=== PATIENT | female | born 1960 | race Caucasian/White ===

== ENCOUNTER 2017-07-26 01:37 | Emergency (ER) | payer OTHER ==
[~2017-07-26] VITALS: Ht 180.3 cm; Wt 109.5 kg
--- NOTE | 2017-07-26 01:53 | ED.REPORT ---
HPI-General Illness Date of Service Jul 26, 2017 ED Provider: Dr. Richards Pt is a 56 y/o female w/ a hx of esophageal food impaction presenting to the ED c/o esophageal food impaction onset today. The patient was eating some dry almond chicken breast at 16:00 today and a piece became stuck in her esophagus. She is now unable to swallow her saliva. Pt denies SOB. This has happened multiple times previously. Nursing Notes Stated Complaint: FOREIGN BODY IN THROAT Chief Complaint: General Complaint Nursing Notes Reviewed: Yes Allergies: Coded Allergies: quetiapine (Verified Allergy, Unknown, 07/26/17) Uncoded Allergies: AVACADO (Allergy, Unknown, 07/26/17) General Time Seen by MD: 01:53 Chief Complaint Other (esophageal food impaction) Hx Obtained From: Patient Arrived By: Walk-in Sudden in Onset?: Yes Onset Occurred: 9 - 12 hours ago Symptom Duration: Waxes and wanes Severity: Current: No pain currently Severity: Maximum: No pain Similar Sx Previous: Yes Past Medical History Past Medical History Esophageal food impaction - multiple times Past Surgical History Sex change operation Smoking History Never Smoker Social History Alcohol Use: "Social" Ambulatory Status Independent Review of Systems Full Review of Systems Respiratory: Denies: Shortness of breath GI: Reports: Dysphagia Complete sys rev & neg: except as marked. Physical Exam Vital Signs Vital Signs Date Time Temp Pulse Resp B/P Pulse Ox O2 Delivery O2 Flow Rate FiO2 07/26/17 01:54 36 73 12 130/77 97 Room Air Initial VS: Reviewed, Vital signs normal Head / Eyes: Atraumatic, Normocephalic Neck: Supple, Full range of motion Respiratory: Breath sounds normal, Clear to auscultation, No respiratory distress Cardiovascular: Regular rate & rhythm, Heart sounds normal, Intact distal pulses Extremities: Vascular intact, Neuro intact, No swelling Skin: Warm, Dry, No cyanosis Neurologic: Alert, Oriented, Nonfocal Psychiatric: Mood/affect normal, Behavior normal, Normal thought content General/Constitutional: Awake, Alert, Cooperative, Not toxic appearing Distress / Hydration: Positive: Distress mild (resolved after spontaneous passage of chicken) ENT: Atraumatic, Airway patent, Mucous membranes moist Interpretation & Diagnostics Lab Results Interpretation Result Diagram: 07/26/17 0210 07/26/17 0210 Test 07/26/17 02:10 White Blood Count 9.0th/mm3 (3.8-10.1) Red Blood Count 4.45mil/mm3 (3.90-5.20) Hemoglobin 13.8g/dL (12.0-15.6) Hematocrit 41.7% (35.0-46.0) Mean Corpuscular Volume 93.7fL (81-100) Mean Corpuscular Hemoglobin 31.0pg (27.0-35.0) Mean Corpuscular Hemoglobin Concent 33.1% (32.0-37.0) Red Cell Distribution Width 13.4% (12.3-15.4) Platelet Count 253bil/L (150-400) Neutrophils (%) (Auto) 63.2% (40-74) Lymphocytes (%) (Auto) 20.8% (14-46) Monocytes (%) (Auto) 9.5% (4-12) Eosinophils (%) (Auto) 5.3% (0-5) Basophils (%) (Auto) 0.6% (0-3) Prothrombin Time 9.7sec (8.1-12.5) Prothromb Time International Ratio 0.91ratio Sodium Level 140mEq/L (134-144) Potassium Level 4.1mEq/L (3.5-5.2) Chloride Level 101mEq/L (97-108) Carbon Dioxide Level 27mmol/L (18-29) Blood Urea Nitrogen 16mg/dL (6-24) Creatinine 0.85mg/dL (0.57-1.00) Estimat Glomerular Filtration Rate 100mL/min (>59) Glucose Level 102mg/dL (60-99) Calcium Level 9.0mg/dL (8.5-10.1) Total Bilirubin 0.3mg/dL (0.0-1.2) Aspartate Amino Transf (AST/SGOT) 18U/L (0-50) Alanine Aminotransferase (ALT/SGPT) 18U/L (0-32) Alkaline Phosphatase 90U/L (25-150) Total Protein 7.5g/dL (6.4-8.4) Albumin 4.0g/dL (3.4-5.0) Re-Eval/Medical Decision Med Decision/Clinical Course 56-year-old presents with one multiple episodes of esophageal impaction. Apparently there have been documented Schatzki rings in the past. Fortunately, this episode resolved spontaneously prior to meds or scope intervention here. Discharged home in stable condition. Time of Eval: 02:10 Re-Evaluation/Progress Note: Pt rechecked. Piece of chicken spontaneously passed without any intervention. Informed pt of plan for discharge. Pt understands and agrees with plan for discharge. F/U instructions and RTER warnings given. All questions addressed. Counseled Regarding: Diagnosis, Need for follow-up, When/why to return to ED Discharge & Departure Primary Impression: Esophageal obstruction due to food impaction Disposition: Home Discharge Condition All VS Reviewed: Yes Condition: Stable Patient Instructions: Esophageal Foreign Body (ED) Additional Instructions: Begin omeprazole daily. Avoid dry fibrous meat such as chicken breast and dry pork Small bites well chewed and well lubricated always. Follow up with your doctor. Follow-up endoscopy is probably reasonable. Return for any immediate issues Referrals: Theresa Alonso MD (PCP) Scribe Attestation Portions of this note were transcribed by Chun Garcia. I, Dr. Richards personally performed the history, physical exam and medical decision-making; I reviewed and confirmed the accuracy of the information in the transcribed note. copies to: Theresa Alonso MD, Christopher W MD Jul 26, 2017 01:53 CHUN GARCIA Jul 26, 2017 01:59
[2017-07-26 01:54] VITALS: BP 130/77; PULSE 73; RESP 12; O2SAT 97
[2017-07-26] MEDS ORDERED: 0.9% Sodium Chloride 1,000 ML IV ONE (01:56)
[2017-07-26] MEDS ORDERED: Pantoprazole 4 mg/mL 10 mL Inj IVPUSH ONE (02:00)
[2017-07-26] MEDS ORDERED: Glucagon 1 mg/mL Inj IV ONE (02:00)
[2017-07-26 02:16] LABS: BASOPHILS % (AUTO) 0.6 % (0-3); EOSINOPHILS % (AUTO) 5.3 % (0-5); MONOCYTES % (AUTO) 9.5 % (4-12); Mean Corpuscular Volume 93.7 fL (81-100); NEUTROPHILS % (AUTO) 63.2 % (40-74); Platelet Count 253 bil/L (150-400)
[2017-07-26 02:34] LABS: INR 0.91 ratio
== END 2017-07-26 02:54 | disposition home or self-care (01) ==
LOC: SED 01:37
DX: K22.2 Esophageal obstruction (principal); T18.128A Food in esophagus causing other injury, initial encounter; X58.XXXA Exposure to other specified factors, initial encounter; Y93.89 Activity, other specified; Y99.8 Other external cause status; Y92.89 Other specified places as the place of occurrence of the external cause; Z87.890 Personal history of sex reassignment; Z88.8 Allergy status to other drugs, medicaments and biological substances